=== PATIENT | male | born 1950 | race Caucasian/White ===

== ENCOUNTER 2018-01-09 06:33 | Inpatient (IN) | payer MEDICARE, OTHER ==
[2018-01-09] MEDS ORDERED: FUROSEMIDE 40 MG/4 ML VIAL IVP ONE (07:20)
--- NOTE | 2018-01-09 07:27 | ED Physician Documentation ---
General Adult - VITAL SIGNS Vital Signs: Vital Signs Temp Pulse Resp BP Pulse Ox 98.1 F 61 18 147/91 91 L 01/09/18 09:52 01/09/18 09:52 01/09/18 09:52 01/09/18 09:52 01/09/18 09:52 <Evelina Juan - Last Filed: 01/09/18 09:56> - HPI Stated Complaint: leg and testicle swelling, soa with exsertion Chief Complaint: Dyspnea Additional Information: Patient with past medical history of atrial fibrillation (on coumadin) presents with a one week history of increasing scrotal edema, lower extremity edema and shortness of breath with exertion. He was seen by his PCP yesterday and has a scrotal US today, however, his shortness of breath increased overnight so he came to the ED. He denies chest pain, cough, fever or syncope. He admits to a 60 pound weight gain over the past 4 months. Onset: days ago (7) Timing: still present, worse Modifying Factors: better with rest - ROS CONST: other (60 pound weight gain over past 4 months) EYES/ENT: none CVS/RESP: shortness of breath. denies: cough GI/: denies: problems urinating MS/SKIN/LYMPH: leg swelling. denies: calf pain NEURO/PSYCH: denies: dizziness - PAST HX Past History: A-Fib, hypertension Other History: none Surgeries/Procedures: none - SOCIAL HX Smoking History: quit greater than 1 year, greater than 1 pack/day, other (30 pack year smoking history) - FAMILY HX Family History: No - VITAL SIGNS Vital Signs: Vital Signs Temp Pulse Resp BP Pulse Ox 98.1 F 61 18 147/91 91 L 01/09/18 06:47 01/09/18 06:47 01/09/18 06:47 01/09/18 06:47 01/09/18 06:47 - REVIEWED ASSESSMENTS Nursing Assessment Reviewed: Yes Vitals Reviewed: Yes <Aniket Rai - Last Filed: 01/09/18 12:41> - PAST HX Allergies/Adverse Reactions: Allergies Allergy/AdvReac Type Severity Reaction Status Date / Time No Known Allergies Allergy Verified 01/09/18 07:44 Home Medications: Ambulatory Orders Medication Instructions Recorded Digoxin [Lanoxin] 125 mcg D 01/09/18 Fluticasone Propionate [Flovent 1 each D 01/09/18 Diskus] Magnesium Oxide [Magnesium] 400 mg D 01/09/18 Meclizine HCl [Motion-Time] 25 mg HS 01/09/18 Metoprolol Succinate 25 mg D 01/09/18 Pantoprazole Sodium [Protonix] 40 mg D 01/09/18 Thiamine HCl [Vitamin B-1] 100 mg D 01/09/18 Warfarin Sodium [Coumadin] 6 mg D 01/09/18 Progress - Progress Progress: Patient tolerating diuretic well. BNP elevated at 4000. Will admit <Evelina Juan - Last Filed: 01/09/18 09:56> - Results/Orders Results/Orders: Chest PA and lateral views Clinical history: Dyspnea There is moderate cardiomegaly with atherosclerotic thoracic aorta. Significant right lower lung infiltrates and large right pleural effusion. Cannot exclude pericardial effusion. Patient may needs CT scan of the chest with IV contrast. Clear left lung. Moderate thoracic spondylosis . Impression: Cardiomegaly with atherosclerotic thoracic aorta, cannot exclude pericardial effusion Right lower lung infiltrate and large right pleural effusion, possibly pneumonia CT scan of the chest with IV contrast is recommended Electronically signed on Jan 09, 2018 7:38:23 AM CDT by: Aniket Marsh - EKG/XRAY/CT EKG: rhythm (atrial fibrillation 61 bpm) XRAY: chest <Aniket Rai - Last Filed: 01/09/18 12:41> ED Results Lab/Radiology - Lab Results Lab Results: Lab Results 01/09/18 01/09/18 01/09/18 08:30 07:15 07:15 PT 23.8 Seconds H Seconds (9.4-11.6) INR 2.25 H (0.9-1.2) Sodium 129 mmol/L L mmol/L (136-145) Potassium 4.2 mmol/L mmol/L (3.5-5.1) Chloride 99 mmol/L mmol/L (98-107) Carbon Dioxide 29 mmol/L mmol/L (22-30) BUN 12 mg/dL mg/dL (9-20) Creatinine 0.70 mg/dL mg/dL (0.66-1.25) Estimated Creat Clear 172 Est GFR ( Amer) > 60 (60 - ) Est GFR (Non-Af Amer) > 60 (60 - ) Glucose 86 mg/dL mg/dL (74-106) Calcium 8.4 mg/dL mg/dL (8.4-10.2) Total Bilirubin 1.8 mg/dL H mg/dL (0.2-1.3) AST 15 U/L U/L (15-46) ALT 24 U/L U/L (13-69) Alkaline Phosphatase 91 U/L U/L (38-126) NT-Pro-B Natriuret Pep 4008.7 pg/mL H pg/mL (15.0-125.0) Total Protein 6.7 g/dL g/dL (6.3-8.2) Albumin 3.5 g/dL g/dL (3.5-5.0) - Orders Orders: ED Orders Category Date Time Status CHEST 2VIEW [RAD] Stat Exams 01/09/18 Taken BLOOD CULTURE Stat Lab 01/09/18 08:52 Received BNP [NT-proBNP] Stat Lab 01/09/18 07:15 Completed CBC REF Routine Lab 01/09/18 18:10 Completed CMP Routine Lab 01/09/18 07:15 Completed PT-INR Routine Lab 01/09/18 08:30 Completed Furosemide [Lasix] Med 01/09/18 07:20 Discontinued 40 mg IVP NOW ONE EKG WITH COMPARISON Routine Ther 01/09/18 Completed <Evelina Juan - Last Filed: 01/09/18 09:56> - Orders Orders: ED Orders Category Date Time Status CHEST 2VIEW [RAD] Stat Exams 01/09/18 Ordered BNP [NT-proBNP] Stat Lab 01/09/18 Ordered CBC/PLATELET/DIFF Routine Lab 01/09/18 Ordered CMP Routine Lab 01/09/18 Ordered Furosemide [Lasix] Med 01/09/18 07:20 Once 40 mg IVP NOW ONE <Aniket Ria Last Filed: 01/09/18 12:41> General Adult Physical Exam - PHYSICAL EXAM GENERAL APPEARANCE: no distress EENT: BERENICE NECK: supple RESPIRATORY: no resp distress (Bibasilar crackles ) ABDOMEN: non-tender, distended BACK: no CVA tenderness SKIN: warm/dry, normal color EXTREMITIES: edema (3+ lower extremity edema to groin. Scrotal edema) NEURO: oriented X3 <Aniket Rai Last Filed: 01/09/18 12:41> Discharge Decision to Admit: [id number] Date of Decison to Admit: 01/09/18 Decision Time: 09:57 <Evelina Juan - Last Filed: 01/09/18 09:56> <Aniket Rai - Last Filed: 01/09/18 12:41> Clincal Impression: Acute heart failure Qualifiers: Heart failure type: unspecified Qualified Code(s): I50.9 - Heart failure, unspecified Condition: Stable Disposition: 09 ADMITTED INPATIENT
[2018-01-09 08:05] LABS: eGFR (Non-African) > 60
[2018-01-09 08:41] LABS: BASO % 0.6 % (0.0-1.5); EOS % 2.6 % (0.0-6.8); LYMPH ABS # 0.96 thou/uL (0.60-4.00); MCH. 24.7 pg (28.0-34.0); MCV 84.2 fL (80.0-100.0); MONOCYTE % 9.6 % (0.0-11.0); MONOCYTE ABS # 0.5 thou/uL (0.00-0.90)
[2018-01-09] MEDS ORDERED: PNEUMOCOCCAL 23-VAL IM ONE ×2 (10:11→17:00)
--- NOTE | 2018-01-09 10:44 | History and Physical Report ---
History of Present Illnes - History of Present Illness Reason for Visit: dyspnea History of Present Illness: Patient with past medical history of atrial fibrillation (on coumadin) presents with a 10 day history of increasing edema to his lower extremities, scrotal, and lower abdominal edema. Gradual onset. Has gained about 60 lbs over 3 months period. Patient has been havings some increasing shortness of breath with exertion. No chest pain or pressure noted. No cough noted. Having some mild orthopnic symptoms. He was seen by his PCP yesterday and has a scrotal US today, however, his shortness of breath increased overnight so he came to the ED. He denies chest pain, cough, fever or syncope. Patient denies any liver problems. No previous history of swelling or heart problems. Patient denies any abdominal ascites that he is aware of. - Past Medical History Cardiac: AFIB (start about 12 years ago. ), CHF (7-8 year ago, not ure if he has been under treatment. ), Hyperlipidemia. 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 denies: Influenza Vaccine, Pneumococcal Vaccine (last one was about 5 years ago), Colonoscopy Influenza Vaccine: No Pneumonia Vaccine: No Resuscitation Status: FULL CODE - Unable to Obtain History Unable to Obtain: No Review of Systems - Review of Systems Constitutional: Weakness. negative: Fever, Chills Eyes: negative: pain, vision change ENT: Nose Discharge (clear), Nose Congestion, Other (allergies). negative: Ear Pain, Ear Discharge Respiratory: Cough, Dry, Shortness of Breath, SOB with Excertion, Wheezing (mild). negative: Hemoptysis, Pleuritic Pain Cardiovascular: Orthopnea (mild), Edema. negative: Chest Pain, Palpitations, Paroxysmal Noc. Dyspnea Gastrointestinal: negative: Nausea, Vomiting, Abdominal Pain, Diarrhea, Constipation, Melena, Hematochezia Genitourinary: negative: Dysuria, Frequency, Incontinence, Retention Musculoskeletal: negative: Back Pain Skin: negative: Rash Neurological: Weakness. negative: Incoordination, Confusion, Seizures - Medications/Allergies Allergies/Adverse Reactions: Allergies Allergy/AdvReac Type Severity Reaction Status Date / Time No Known Allergies Allergy Verified 01/09/18 07:44 Home Medications: Home Medications Digoxin [Lanoxin] 125 mcg D 01/09/18 Fluticasone Propionate [Flovent Diskus] 1 each D 01/09/18 Magnesium Oxide [Magnesium] 400 mg D 01/09/18 Meclizine HCl [Motion-Time] 25 mg HS 01/09/18 Metoprolol Succinate 25 mg D 01/09/18 Pantoprazole Sodium [Protonix] 40 mg D 01/09/18 Thiamine HCl [Vitamin B-1] 100 mg D 01/09/18 Warfarin Sodium [Coumadin] 6 mg D 01/09/18 Current Inpatient Medications: Current Inpatient Medications Digoxin (Lanoxin) 125 mcg PO D [facility] Furosemide (Lasix) 40 mg IVP Q12 [facility] Magnesium Oxide (Mag-Oxide) 400 mg PO D [facility] Metoprolol Tartrate (Lopressor) 25 mg PO DAILY [facility] Pantoprazole Sodium (Protonix) 40 mg PO D [facility] Pneumococcal Polyvalent Vaccine (Pneumovax 23) 25 mcg IM 1T ONE Stop: 01/09/18 10:12 Fluticasone/Salmeterol (Advair 250-50 Diskus) 1 each IH BID [facility] Thiamine HCl (Vitamin B-1) 100 mg PO D [facility] Warfarin Sodium (Coumadin) 6 mg PO D [facility] Exam - Exam Vital Signs: Vital Signs (72 hours) 01/09/18 01/09/18 06:47 09:52 Temperature 98.1 F 98.1 F Pulse Rate [ 61 61 Pulse ox] Respiratory 18 18 Rate Blood Pressure 147/91 147/91 [Left Arm] O2 Sat by Pulse 91 L 91 L Oximetry General: Alert, Oriented to Person, Oriented to Place, Oriented to Time, Cooperative, Mild distress HEENT: Atraumatic, PERRLA, EOMI, Mouth Mucous membr. moist/[place], Nose Mucous membr. moist/[place], Edentulous, Decreased Hearing Acuity (mild). No: Pharyngeal Erythema Neck: Normal Range of Motion. No: Stridor, Rigidity, Lymphadenopathy Carotids: WNL Thyroid: WNL Lungs: Speaks full Sentences, Respiratory Distress (decrease BS in right base), Wheezes (mild), Rales (R>L) Cardiovascular: Normal S1, Normal S2, No murmurs, Atrial Fib Peripheral Edema: 3/4 bilaterally in LE. Significant swelling to the scrotal area. Some swelling to the lower abd wall area. Abdomen: Normal bowel sounds, Soft, No tenderness, No hepatospenomegaly, No masses, Distended (mild possible ascites) Integumentary: Normal, [place], Warm, Dry Extremities: No clubbing, No tenderness/swelling Neurological: Normal speech, Strength Equal Bilat, Normal tone, Sensation intact, Cranial nerves 3-12 NL, Reflexes 2+ Psych/Mental Status: Mental status NL, Mood NL, Appropriate Affect, Intact Judgment - Laboratory Results Laboratory Results: Laboratory Results 01/09/18 01/09/18 01/09/18 07:15 07:15 08:30 WBC Comment RBC Hemoglobin (Send Out) Hct (Send Out) MCV (Send Out) MCH MCHC (Send Out) RDW Coeff of Adalberto Plt Count Absolute Lymphs (auto) Absolute Monos (auto) Absolute Basos (auto) CBC Comment Neutrophils % Absolute Neutrophils Lymphocytes Monocytes Absolute Eosinophils Basophilia % Eosinophil Count PT 23.8 H INR 2.25 H Sodium 129 L Potassium 4.2 Chloride 99 Carbon Dioxide 29 BUN 12 Creatinine 0.70 Estimated Creat Clear 172 Est GFR ( Amer) > 60 Est GFR (Non-Af Amer) > 60 Glucose 86 Calcium 8.4 Total Bilirubin 1.8 H AST 15 ALT 24 Alkaline Phosphatase 91 NT-Pro-B Natriuret Pep 4008.7 H Total Protein 6.7 Albumin 3.5 01/09/18 18:10 WBC Comment 5.20 RBC 4.01 Hemoglobin (Send Out) 9.9 L Hct (Send Out) 33.8 L MCV (Send Out) 84.2 MCH 24.7 L MCHC (Send Out) 29.3 L RDW Coeff of Adalberto 16.7 H Plt Count 142 Absolute Lymphs (auto) 0.96 Absolute Monos (auto) 0.50 Absolute Basos (auto) 0.03 CBC Comment Neutrophils % 68.7 Absolute Neutrophils 3.57 Lymphocytes 18.5 Monocytes 9.6 Absolute Eosinophils 0.14 Basophilia % 0.6 Eosinophil Count 2.6 PT INR Sodium Potassium Chloride Carbon Dioxide BUN Creatinine Estimated Creat Clear Est GFR ( Amer) Est GFR (Non-Af Amer) Glucose Calcium Total Bilirubin AST ALT Alkaline Phosphatase NT-Pro-B Natriuret Pep Total Protein Albumin Assessment/Plan - Assessment/Plan (1) Edema Status: Acute Current Visit: Yes Assessment: Etiology is unclear at this time. With history of CHF and cardiomegally, pulmonary congestion and elevated BNP CHF would be a consideration. Will start patient on IV lasix, get a cardiology consult, and ECHO done. Daily weight will be montiored along with electrolytes. With swelling to the lower abd wall and signifcant scrotal edema ascites would be a consideration also. T bili is elevated mildly otherwise LFTs are normal. Possible intraabdominal pathology. Patient has not had a colonoscopy done. (2) A-fib Status: Acute Current Visit: Yes Assessment: On anticoagulation therapy of coumadine. Adequate INR of 2.25. Will continue and will monitor INR. (3) Acute heart failure Status: Acute Current Visit: Yes Qualifiers: Heart failure type: unspecified Qualified Code(s): I50.9 - Heart failure, unspecified Assessment: As above (4) Microcytic anemia Status: Acute Current Visit: Yes Assessment: Will get stool hemmocults, iron studies. (5) Tobacco abuse Status: Chronic Current Visit: Yes Assessment: Patient encouraged to stop smoking, states he does not want to do so at this time. Will start nicotine patch. VTE Assessment - RISK FACTOR SCORE VTE RISK FACTOR SCORES: AGE OVER 60 YEARS, CONGESTIVE HEART FAILURE OR MYOCARDIAL INFARCTION - RISK VTE MODERATE RISK: SCORE OF 2 (RISK PROXIMAL DVT 2-4%) PROPHYAXIS NEEDED (on coumadin)
--- NOTE | 2018-01-09 13:38 | Diagnostic Imaging Report ---
ANIKET SHOEMAKER [facility] [address] [facility].[address] [address] Report Submission Date: Jan 09, 2018 7:38:23 AM CDT Patient Study Name: SARAH PETERSON Date: Jan 09, 2018 7:20:31 AM CDT Modality Type: DX Gender: M Description: CHEST : 46 Institution: [facility] Physician: ANIKET SHOEMAKER Chest PA and lateral views Clinical history: Dyspnea There is moderate cardiomegaly with atherosclerotic thoracic aorta. Significant right lower lung infiltrates and large right pleural effusion. Cannot exclude pericardial effusion. Patient may needs CT scan of the chest with IV contrast. Clear left lung. Moderate thoracic spondylosis . Impression: Cardiomegaly with atherosclerotic thoracic aorta, cannot exclude pericardial effusion Right lower lung infiltrate and large right pleural effusion, possibly pneumonia CT scan of the chest with IV contrast is recommended Electronically signed on Jan 09, 2018 7:38:23 AM CDT by: Aniket BECK
[2018-01-09 14:56] VITALS: BMI 38.3
[2018-01-09] MEDS ORDERED: NYSTATIN POWDER BOTTLE TP PRN (15:28)
[2018-01-09] MEDS: NICOTINE 14mg PATCH.TD24 TD SCH (15:49)
[2018-01-09] MEDS ORDERED: WARFARIN SODIUM 5 MG TABLET PO SCH (18:00)
--- NOTE | 2018-01-09 18:20 | Diagnostic Imaging Report ---
CHASE CHAWLAEY [facility] [address] [facility] [address] [place], [place]. [address] Report Submission Date: Jan 09, 2018 5:20:20 PM CDT Patient Study Name: SARAH PETERSON Date: Jan 09, 2018 2:13:36 PM CDT Modality Type: CT\SR Gender: M Description: CT CHEST W/ CONTRAST : 46 Institution: [facility] Physician: CHASE VAZQUEZ CT chest with contrast History: Right pleural effusion noted on a chest x-ray today Technique: Helically acquired images were obtained through the chest following IV contrast. Findings: The thoracic aorta is atherosclerotic but not aneurysmal. There is a moderate to large right pleural effusion. There is associated compressive atelectasis at the right lung base. Multiple calcified right hilar nodes are present. There is no mediastinal or hilar lymphadenopathy. No filling defects are identified within the pulmonary arteries although this study was not performed with a CTA protocol. There is old granulomatous disease of a normal sized spleen. The adrenal glands are normal. The gallbladder is only limited the visualized but there do appear to be several small gallstones. The left lung is clear. Findings consistent with diffuse idiopathic skeletal hyperostosis of the thoracic spine are present. Impression: There is a moderate to large right pleural effusion with associated compressive atelectasis at the posterior right lower lobe. There is old granulomatous disease with bilateral calcified hilar nodes and calcified granulomata of the spleen. Not mentioned above, the heart is enlarged. There does appear to be four- chamber enlargement and there are coronary artery calcifications. If not recently performed, consider echocardiography. Apparent small gallstones in a partly visualized gallbladder. At the level of the upper abdomen, there is generalized body wall edema. Electronically signed on Jan 09, 2018 5:20:20 PM CDT by: Shelbie BECK
--- NOTE | 2018-01-09 18:21 | Diagnostic Imaging Report ---
BOYD SHOEMAKER [facility] [address] [facility].[address] [address] Report Submission Date: Jan 09, 2018 5:06:38 PM CDT Patient Study Name: SARAH PETERSON Date: Jan 09, 2018 1:55:35 PM CDT Modality Type: US Gender: M Description: US SCROTUM : 46 Institution: [facility] Physician: BOYD SHOEMAKER Scrotal ultrasound with Doppler History: Scrotal swelling Transverse and longitudinal images were through the scrotum. Duplex and color flow imaging was performed. The images provided are limited as the standard probe could not be implemented due to the degree of scrotal thickening and/or edema. In general, the tunic albuginea and the median raphe are abnormally thickened. These findings are nonspecific. These findings could represent cellulitis. These findings could be the sequelae of generalized edema or anasarca. Please correlate clinically in this regard. Flow is detected to both testicles. The right testicle measures 2.8 x 2.6 x 2.6 cm. The left testicle measures 2.8 x 2.9 x 2.8 cm. No testicular mass is noted. No epididymal abnormalities are noted. Impression: This is a limited study. The small parts probe could not be used due to the degree of scrotal swelling per the technologist. The testicles and epididymal structures appear normal. However, the tunic albuginea and the median raphe all appear abnormally thickened. These findings are nonspecific by ultrasound and could represent the sequelae of cellulitis or could represent the sequelae of a fluid overload state/anasarca. Please correlate clinically. If further assessment is desired, consider CT. If there is clinical concern for gangrene or fasciitis, consider CT. Electronically signed on Jan 09, 2018 5:06:38 PM CDT by: Shelbie BECK
[2018-01-09] MEDS: WARFARIN SODIUM 1 MG TABLET PO SCH (18:22)
[2018-01-09] MEDS: FLUTICASONE/SALMETEROL 250-50 INHALER IH SCH (21:30)
[2018-01-09] MEDS: FUROSEMIDE 40 MG/4 ML VIAL IVP SCH (21:32)
[2018-01-10] MEDS ORDERED: MAGNESIUM OXIDE 400 MG TABLET PO ONE (00:58)
[2018-01-10] MEDS ORDERED: THIAMINE HCL 100 MG TABLET PO ONE (00:58)
[2018-01-10] MEDS ORDERED: METOPROLOL TARTRATE 25 MG TABLET ONE (00:58)
[2018-01-10] MEDS ORDERED: PANTOPRAZOLE SODIUM 40 MG TABLET ONE (00:58)
[2018-01-10] MEDS ORDERED: DIGOXIN 125 MCG TABLET PO ONE (00:59)
[2018-01-10] MEDS: PANTOPRAZOLE SODIUM 40 MG TABLET PO SCH (06:07)
[2018-01-10 06:21] LABS: eGFR (Non-African) > 60
[2018-01-10] MEDS ORDERED: PANTOPRAZOLE SODIUM 40 MG TABLET PO SCH (09:00)
[2018-01-10] MEDS: FUROSEMIDE 40 MG/4 ML VIAL IVP SCH ×2 (09:14→20:47)
[2018-01-10] MEDS: NICOTINE 14mg PATCH.TD24 TD SCH (09:16)
[2018-01-10] MEDS: THIAMINE HCL 100 MG TABLET PO SCH (09:16)
[2018-01-10] MEDS: METOPROLOL TARTRATE 25 MG TABLET PO SCH (09:16)
[2018-01-10] MEDS: DIGOXIN 125 MCG TABLET PO SCH (09:16)
[2018-01-10] MEDS: MAGNESIUM OXIDE 400 MG TABLET PO SCH (09:16)
[2018-01-10] MEDS: FLUTICASONE/SALMETEROL 250-50 INHALER IH SCH ×2 (09:17→20:47)
[2018-01-10 17:01] LABS: BASO % 0.7 % (0.0-1.5); EOS % 2.2 % (0.0-6.8); LYMPH ABS # 0.94 thou/uL (0.60-4.00); MCV 84.9 fL (80.0-100.0); MONOCYTE % 12.2 % (0.0-11.0); MONOCYTE ABS # 0.63 thou/uL (0.00-0.90)
[2018-01-10 17:21] LABS: IRON SERUM 24 ug/dL (59-158); SERUM IRON 24 ug/dL (59-158)
[2018-01-10] MEDS: WARFARIN SODIUM 1 MG TABLET PO SCH (18:50)
[2018-01-11] MEDS: PANTOPRAZOLE SODIUM 40 MG TABLET PO SCH (06:04)
[2018-01-11 06:53] LABS: eGFR (Non-African) > 60
[2018-01-11] MEDS: NICOTINE 14mg PATCH.TD24 TD SCH (08:39)
[2018-01-11] MEDS: DIGOXIN 125 MCG TABLET PO SCH (08:39)
[2018-01-11] MEDS: FLUTICASONE/SALMETEROL 250-50 INHALER IH SCH (08:39)
[2018-01-11] MEDS: MAGNESIUM OXIDE 400 MG TABLET PO SCH (08:40)
[2018-01-11] MEDS: THIAMINE HCL 100 MG TABLET PO SCH (08:40)
[2018-01-11] MEDS: METOPROLOL TARTRATE 25 MG TABLET PO SCH (08:40)
[2018-01-11 08:42] LABS: BASO % 0.6 % (0.0-1.5); EOS % 2.3 % (0.0-6.8); LYMPH ABS # 0.88 thou/uL (0.60-4.00); MCH. 25.3 pg (28.0-34.0); MCV 84.6 fL (80.0-100.0); MONOCYTE % 9.5 % (0.0-11.0); MONOCYTE ABS # 0.47 thou/uL (0.00-0.90)
--- NOTE | 2018-01-11 08:45 | Inpatient Progress Note ---
Subjective - Required Recertification Statement I anticipate X number of days because-include discharge plan: 1 day - Review of Systems Events since last encounter: Patient stated he is breathing better at this time. Patient denies any cough at this time. Patient stated he had diarrhea stop a lot of fluids. Patient does not moisten any specific complaints today. General: Denies: Chills Pulmonary: Denies: Dyspnea, Cough, Pleuritic Chest Pain Cardiovascular: Denies: Chest Pain, [place] Gastrointestinal: Denies: Nausea, Vomiting, Abdominal Pain Objective - Exam Vitals and I&O: Vital Signs Temp 97.3 F L 01/11/18 05:13 Pulse 73 01/11/18 05:19 Resp 18 01/11/18 05:19 BP 114/66 01/11/18 05:13 Pulse Ox 92 01/11/18 05:13 Intake & Output 01/10/18 01/10/18 01/11/18 11:59 23:59 11:59 Intake Total 960 1940 480 Output Total 950 550 Balance 10 1390 480 Weight 122.47 kg 125.645 kg Intake: IV 20 Right Hand 20 Oral 960 1920 480 Output: Urine 950 550 Other: Voiding Method Urinal Urinal Urinal # Voids 6 3 5 General: Alert, Oriented to Person, Oriented to Place, Oriented to Time, Cooperative Neck: Supple, No JVD Lungs: Normal air movement, Speaks full Sentences, Rales (R>L). No: Rhonchi Cardiovascular: Normal S1, Normal S2, Irregularly Irregular Abdomen: Normal bowel sounds, Soft, No tenderness, No hepatospenomegaly Extremities: No clubbing, No cyanosis, Other (edema about the same) Skin: Normal, [place], Warm, Dry Neurological: Normal gait, Normal speech Psych/Mental Status: Mental status NL, Mood NL, Appropriate Affect, Intact Judgment - Results Results: Laboratory Results WBC Comment 4.94 thou/uL (4.00-12.00) 01/11/18 06:00 RBC 3.79 mil/uL (3.80-5.80) L 01/11/18 06:00 Hemoglobin (Send Out) 9.6 g/dL (12.0-18.0) L 01/11/18 06:00 Hct (Send Out) 32.1 % (37.0-53.0) L 01/11/18 06:00 MCV (Send Out) 84.6 fL (80.0-100.0) 01/11/18 06:00 MCH 25.3 pg (28.0-34.0) L 01/11/18 06:00 MCHC (Send Out) 29.9 g/dL (30.0-36.0) L 01/11/18 06:00 RDW Coeff of Adalberto 16.7 % (11.3-14.7) H 01/11/18 06:00 Plt Count 135 thou/uL (130-400) 01/11/18 06:00 Absolute Lymphs (auto) 0.88 thou/uL (0.60-4.00) 01/11/18 06:00 Absolute Monos (auto) 0.47 thou/uL (0.00-0.90) 01/11/18 06:00 Absolute Basos (auto) 0.03 thou/uL (0.00-0.50) 01/11/18 06:00 CBC Comment 01/11/18 06:00 Neutrophils % 69.7 % (39.0-79.0) 01/11/18 06:00 Absolute Neutrophils 3.44 thou/uL (1.50-7.70) 01/11/18 06:00 Lymphocytes 17.9 % (16.0-50.0) 01/11/18 06:00 Monocytes 9.5 % (0.0-11.0) 01/11/18 06:00 Absolute Eosinophils 0.11 thou/uL (0.00-0.60) 01/11/18 06:00 Basophilia % 0.6 % (0.0-1.5) 01/11/18 06:00 Eosinophil Count 2.3 % (0.0-6.8) 01/11/18 06:00 PT 20.8 Seconds (9.4-11.6) H 01/11/18 06:00 INR 1.97 (0.9-1.2) H 01/11/18 06:00 Sodium 130 mmol/L (136-145) L 01/11/18 06:00 Potassium 3.2 mmol/L (3.5-5.1) L 01/11/18 06:00 Chloride 101 mmol/L (98-107) 01/11/18 06:00 Carbon Dioxide 32 mmol/L (22-30) H 01/11/18 06:00 BUN 10 mg/dL (9-20) 01/11/18 06:00 Creatinine 0.60 mg/dL (0.66-1.25) L 01/11/18 06:00 Estimated Creat Clear 206 01/11/18 06:00 Est GFR ( Amer) > 60 (60-) 01/11/18 06:00 Est GFR (Non-Af Amer) > 60 (60-) 01/11/18 06:00 Glucose 88 mg/dL (74-106) 01/11/18 06:00 Calcium 8.0 mg/dL (8.4-10.2) L 01/11/18 06:00 Iron 24 ug/dL (59-158) L 01/09/18 05:30 Iron (send out) 24 ug/dL (59-158) L 01/09/18 05:30 TIBC 420 ug/dL (250-425) 01/09/18 05:30 % Saturation 6 % (20-50) L 01/09/18 05:30 Total Bilirubin 1.6 mg/dL (0.2-1.3) H 01/11/18 06:00 AST 16 U/L (15-46) 01/11/18 06:00 ALT 24 U/L (13-69) 01/11/18 06:00 Alkaline Phosphatase 99 U/L (38-126) 01/11/18 06:00 NT-Pro-B Natriuret Pep 4008.7 pg/mL (15.0-125.0) H 01/09/18 07:15 Total Protein 6.6 g/dL (6.3-8.2) 01/11/18 06:00 Albumin 3.4 g/dL (3.5-5.0) L 01/11/18 06:00 Assessment/Plan - Assessment/Plan (1) Edema Status: Acute Current Visit: Yes Assessment: [place] to be relasted to CHF. Will continue with IV lasix (2) A-fib Status: Chronic Current Visit: Yes Assessment: continue with home meds. Patient is anticoagulated at this time. (3) Acute heart failure Status: Acute Current Visit: Yes Qualifiers: Heart failure type: unspecified Qualified Code(s): I50.9 - Heart failure, unspecified Assessment: ECHO show good LV function with adequate EF of Patient has been seen by Dr Sue and no new recommendations noted. (4) Microcytic anemia Status: Acute Current Visit: Yes Assessment: Awaiting stool guiac. Will start iron therapy. (5) Tobacco abuse Status: Chronic Current Visit: Yes Assessment: Continue with nicotine patch. (6) Pleural effusion due to CHF (congestive heart failure) Status: Acute Current Visit: Yes Assessment: treat CHF and it should resolve.
[2018-01-11] MEDS: FUROSEMIDE 40 MG/4 ML VIAL IVP SCH (09:18)
[2018-01-11] MEDS ORDERED: FERROUS SULFATE 325 MG TABLET PO SCH (11:00)
[2018-01-11 15:30] VITALS: BP 112/70
--- NOTE | 2018-01-11 19:50 | Diagnostic Imaging Report ---
[facility]G [facility] [address] [facility].[address] [address] Report Submission Date: Jan 11, 2018 7:19:07 AM CDT Patient Study Name: SARAH PETERSON Date: Jan 11, 2018 6:52:55 AM CDT Modality Type: DX Gender: M Description: CHEST : 46 Institution: [facility] Physician: [facility]/MED SURG Chest, two views History: Congestive heart failure. Findings: Comparison is made to exam dated 01/09/2018. The heart is enlarged. Mild central vascular congestion is present. Right pleural effusion right basilar atelectasis/infiltrate is present. Findings are not significantly changed since the previous examination. Impression: 1. Cardiomegaly with mild vascular congestion right pleural effusion right basilar atelectasis/infiltrate, unchanged. Electronically signed on Jan 11, 2018 7:19:07 AM CDT by: Narayan BECK
--- NOTE | 2018-01-21 20:28 | Discharge Summary ---
Discharge Summary - Discharge Sumary History of Present Illness: Patient with past medical history of atrial fibrillation (on coumadin) presents with a 10 day history of increasing edema to his lower extremities, scrotal, and lower abdominal edema. Gradual onset. Has gained about 60 lbs over 3 months period. Patient has been havings some increasing shortness of breath with exertion. No chest pain or pressure noted. No cough noted. Having some mild orthopnic symptoms. He was seen by his PCP yesterday and has a scrotal US today, however, his shortness of breath increased overnight so he came to the ED. He denies chest pain, cough, fever or syncope. Patient denies any liver problems. No previous history of swelling or heart problems. Patient denies any abdominal ascites that he is aware of. Condition at Discharge: Stable Home Medications: Ambulatory Orders Medication Instructions Recorded Digoxin [Lanoxin] 125 mcg D 01/09/18 Fluticasone Propionate [Flovent 1 each D 01/09/18 Diskus] Magnesium Oxide [Magnesium] 400 mg D 01/09/18 Meclizine HCl [Motion-Time] 25 mg HS 01/09/18 Metoprolol Succinate 25 mg D 01/09/18 Pantoprazole Sodium [Protonix] 40 mg D 01/09/18 Thiamine HCl [Vitamin B-1] 100 mg D 01/09/18 Warfarin Sodium [Coumadin] 6 mg D 01/09/18 Ferrous Sulfate [Feosol] 325 mg PO [id number] #60 tablet. 01/11/18 Furosemide [Lasix] 40 mg PO D #30 tablet 01/11/18 Consultations this Visit: Cardiology Procedures this Visit: None Allergies/Adverse Reactions: Allergies Allergy/AdvReac Type Severity Reaction Status Date / Time No Known Allergies Allergy Verified 01/09/18 07:44 Discharge Summary: Patient was started on IV therapy and Lasix. Patient did have good diuresis. Within 24 hours patient leg swelling and scrotal swelling did improve. On admission was felt patient might have some congestive heart failure and/or abdominal pathology that may be causing some ascites. A consultation was obtained with Dr. Sue. Echocardiogram showed fairly good LV function. He did feel that the patient swelling and pleural effusion were probably related to his congestive heart failure. Patient BNP did improve to 3135. Repeat checked the tradeshow the pleural effusion to be stable to slightly improved. At the time of dismissal patient with not complain of any chest pain. Patient stated her breathing was stable. Patient was noted to have micro-civic anemia for the hemoglobin 9.6. I'm study show that the patient did have an iron deficiency which was felt to be related to his micro-civic anemia. Patient did not have any stool to check for choir during the hospitalization. Other abnormal lab showed a total bilirubin of 1.6 sodium 130, and potassium of 3.2. At the time of dismissal patient was feeling much better. It was felt that he could be followed up on an outpatient basis. Patient was discharged in stable condition. - Final Diagnosis (3) Acute heart failure Problems: improved (4) Microcytic anemia Problems: stable, appears to be iron deficiency (5) Tobacco abuse Problems: thinking about quitting, does not want any intervention at this time. (6) Pleural effusion due to CHF (congestive heart failure) Problems: stable
== END 2018-01-11 14:05 | disposition home or self-care (01) | DRG 293 ==
LOC: ED 06:33 → SOUTH 09:30
PROVIDERS: ADMIT Family Medicine; ATTEND Family Medicine
DX: I50.9 Heart failure, unspecified (principal); I48.91 Unspecified atrial fibrillation; D50.9 Iron deficiency anemia, unspecified; F17.219 Nicotine dependence, cigarettes, with unspecified nicotine-induced disorders
CPT/HCPCS: 71046; 71260; 76870; 80053; 83540; 83550; 83880; 85025; 85610; 87040; 87186; 93005; 93306; 97116; 97161; 97165; J1940; 96374; 99222; 99232; 99238; Q9967; S1016

== ENCOUNTER 2018-02-14 18:42 | Emergency (ER) | payer MEDICARE, OTHER ==
--- NOTE | 2018-02-14 19:14 | ED Physician Documentation ---
General Adult - HISTORIAN Historian: patient - HPI Stated Complaint: High BP Chief Complaint: General Adult Additional Information: [facility] of [facility] says nurse there checked his BP with a cuff with mafunctioning batteries, then again with a wrist unit. She said systolic was 200. He insisted he felt fine but she wanted him to come to hospital. BP in ER 144/69. He denies BENNETT, any discomfort. Takes coumadin for a fib and says INR was 2.3 2 weeks ago. No other modifying factors or associated signs. - ROS CONST: no problems - PAST HX Past History: A-Fib, hypertension Allergies/Adverse Reactions: Allergies Allergy/AdvReac Type Severity Reaction Status Date / Time No Known Allergies Allergy Verified 02/14/18 19:01 Home Medications: Ambulatory Orders Medication Instructions Recorded Digoxin [Lanoxin] 125 mcg D 01/09/18 Fluticasone Propionate [Flovent 1 each D 01/09/18 Diskus] Magnesium Oxide [Magnesium] 400 mg D 01/09/18 Metoprolol Succinate 25 mg D 01/09/18 Pantoprazole Sodium [Protonix] 40 mg D 01/09/18 Thiamine HCl [Vitamin B-1] 100 mg D 01/09/18 Warfarin Sodium [Coumadin] 6 mg D 01/09/18 Meclizine HCl [Antivert] 1 tab PO HS 02/14/18 - SOCIAL HX Smoking History: non-smoker - FAMILY HX Family History: No - VITAL SIGNS Vital Signs: Vital Signs Temp Pulse Resp BP Pulse Ox 58 L 16 170/89 95 02/14/18 18:42 02/14/18 18:42 02/14/18 18:42 02/14/18 18:42 - REVIEWED ASSESSMENTS Nursing Assessment Reviewed: Yes Vitals Reviewed: Yes ED Results Lab/Radiology - Orders Orders: ED Orders Category Date Time Status Place IV Lock 1T Care 02/14/18 19:10 Ordered CBC/PLATELET/DIFF Routine Lab 02/14/18 Ordered CMP Routine Lab 02/14/18 Ordered PT-INR Routine Lab 02/14/18 Ordered URINALYSIS Routine Lab 02/14/18 Ordered General Adult Physical Exam - PHYSICAL EXAM GENERAL APPEARANCE: no distress EENT: eye inspection normal, ENT inspection normal, pharynx normal NECK: normal inspection, supple RESPIRATORY: no resp distress, breath sounds normal CVS: reg rate & rhythm, heart sounds normal SKIN: warm/dry, normal color EXTREMITIES: no evidence of injury, no edema NEURO: CN's nml as tested, motor nml, sensation nml, cognition normal Discharge Clincal Impression: Well adult exam Referrals: Williams Rider MD [Primary Care Provider] - 2 Days Additional Instructions: We will fax your lab results to you at [facility]. Condition: Good Disposition: 01 HOME, SELF-CARE Decision to Admit: NO Decision Time: 19:16
[2018-02-14 19:38] LABS: BASOPHILS % 0.4 (0.0-1.5); EOSINOPHILS % 3.7 % (0.0-6.8); MEAN CORPUSCULAR HEMOGLOBIN 28.4 pg (28.0-34.0); MONOCYTES % 7.2 % (0.0-11.0)
[2018-02-14 19:39] LABS: eGFR (Non-African) > 60
[2018-02-14 19:41] VITALS: BP 142/78
== END 2018-02-14 19:38 | disposition home or self-care (01) ==
LOC: ED 18:42
DX: Z00.00 Encounter for general adult medical examination without abnormal findings (principal)
CPT/HCPCS: 80053; 85025; 85610; 99282; S1016